=== PATIENT | male | born 1990 | race Caucasian/White ===

== ENCOUNTER 2017-02-10 16:25 | Emergency (ER) | payer SELFPAY ==
--- NOTE | 2017-02-10 16:57 | NUR ---
Patient called. No answer.
--- NOTE | 2017-02-10 17:02 | NUR ---
CALLED TO BE TRIAGED NO ANSWER
--- NOTE | 2017-02-10 17:12 | NUR ---
CALLED TO BE TRIAGED NO ANSWER
== END 2017-02-10 17:12 | disposition left against medical advice (07) ==
LOC: MED 16:25
DX: M79.606 Pain in leg, unspecified (principal); Z53.21 Procedure and treatment not carried out due to patient leaving prior to being seen by health care provider